=== PATIENT | female | born 1985 | race Caucasian/White ===

== ENCOUNTER → 2020-10-05 | Outpatient (CLI) | payer OTHER ==
[2020-10-05 23:53] LABS: Basophils # (A) 0.09 X 10*3/uL (0.00-0.10); Basophils % (A) 0.9 %; Eosinophils # (A) 0.41 X 10*3/uL (0.04-0.35); Eosinophils % (A) 4.2 %; HGB 13.1 g/dL (12.0-15.0); Lymphocytes # (A) 3.77 X 10*3/uL (0.90-5.00); Lymphocytes % (A) 38.2 %; MCHC 32.8 g/dL (32.0-37.0); MCV 100.8 fL (80.0-97.0); Mean Platelet Volume 9.7 fL (9.5-12.2); Monocytes # (A) 0.72 X 10*3/uL (0.20-1.00); Monocytes % (A) 7.3 %; Neutrophils # (A) 4.84 X 10*3/uL (1.80-7.70); Neutrophils % (A) 49.1 %; Platelet Count 366 X 10*3/uL (140-440); RBC 3.97 X 10*6/uL (4.10-5.20); RDW 13.6 % (11.5-14.5); WBC 9.86 X 10*3/uL (4.50-10.00)
[2020-10-06 05:06] LABS: African American GFR (CKD) 129.2 (60.0-200.0); Albumin 4.8 g/dL (3.80-4.90); Albumin/Globulin Ratio 2.29 (1.60-3.17); Anion Gap 11.6 mmol/L (4.00-12.00); BUN/Creat Ratio 24.29 Ratio (12.00-20.00); Calcium 9.1 mg/dL (8.7-10.3); Carbon Dioxide 19.4 mmol/L (21.6-31.8); Globulin 2.1 g/dL (1.6-3.3); Non-African American GFR(CKD) 111.5 (60.0-200.0); Potassium 4.3 mmol/L (3.5-5.5); Total Bilirubin 0.4 mg/dL (0.2-1.2); Total Protein 6.9 g/dL (6.2-8.2)
[2020-10-06 09:37] LABS: Gliadin AB IgA, Deaminated NEGATIVE (NEGATIVE); Gliadin AB IgG, Deaminated NEGATIVE (NEGATIVE)
== END | disposition home or self-care (01) ==
LOC: LABWHC1 15:35
PROVIDERS: ATTEND Nurse Practitioner
DX: R10.13 Epigastric pain (principal)
CPT/HCPCS: 36415; 80053; 82150; 83516; 83690; 85025

== ENCOUNTER 2020-10-20 09:23 | Day surgery (SDC) | payer OTHER ==
[2020-10-18 15:49] VITALS: BMI 26.4
[~2020-10-20 09:23] MED LIST: LIDOCAINE 1% (10MG/ML) FOR IV START INTRADERMA PRN
[2020-10-20 10:29] VITALS: RESP 18; TEMP 97.5
[2020-10-20] MEDS: LACTATED RINGERS 1,000 ML IV SCH ×2 (10:40→11:30)
[2020-10-20] MEDS ORDERED: PROPOFOL 10 MG/ML 20 ML VIAL IV ONE (11:33)
[2020-10-20] MEDS ORDERED: LIDOCAINE 1% INJ 10MG/ML (20 ML MDV) ONE (11:33)
--- NOTE | 2020-10-20 12:00 | P.PCN ---
Date of Procedure: 10/20/20 Description of Procedure: BRIEF HISTORY: Patient is a 35-year-old female presenting for outpatient EGD for evaluation of epigastric abdominal pain. Patient has a history of GERD and peptic ulcer disease. Previous EGD in 02/2019 significant for gastric ulcers which were nonbleeding. She reports continued symptoms of reflux and epigastric pain even on PPI therapy. Computed tomography scan performed at outside facility was concerning for possible recurrence of gastric ulcers. PROCEDURE PERFORMED: Esophagogastroduodenoscopy with biopsy . PREOPERATIVE DIAGNOSIS: Epigastric abdominal pain, GERD ESTIMATED BLOOD LOSS: Minimal. IV sedation per anesthesia. PROCEDURE: After informed consent was obtained, the patient was brought into the endoscopy unit. IV sedation was administered by Anesthesia under continuous monitoring. Initially the Olympus GIF-190 video endoscope was inserted into the mouth. Esophagus intubated without any difficulty. It was gradually advanced into the stomach and duodenum and carefully examined. The bulb and the second part of the duodenum appeared normal, With biopsies taken. The scope at this time was withdrawn to the stomach, adequately insufflated with air, and upon careful examination, mucosa of the antrum, body, cardia and the fundus appeared normal, Significant for moderate patchy erythema in the antrum suggestive of moderate antritis with biopsies of the antrum and body taken. The scope was then withdrawn into the esophagus. The GE junction was located at 39 cm from the incisors And biopsied. The esophagus appeared normal. There were no erosions or ulcerations seen and the patient tolerated the procedure well. IMPRESSION: 1. Moderate gastritis. 2. Biopsies of the duodenum. Antrum body and GE junction. RECOMMENDATIONS: The findings of this examination were discussed with the patient and her family. Okay to resume diet. Okay to resume medications. Await pathology from biopsies. Follow up in the GI clinic as scheduled. Continue current medical management.
[2020-10-20 12:19] VITALS: BP 156/82; PULSE 70
== END 2020-10-20 12:27 | disposition home or self-care (01) ==
LOC: ORWHC2ENDO 09:23
PROVIDERS: ATTEND Internal Medicine
DX: K29.50 Unspecified chronic gastritis without bleeding (principal); K21.9 Gastro-esophageal reflux disease without esophagitis; F17.200 Nicotine dependence, unspecified, uncomplicated; J45.909 Unspecified asthma, uncomplicated; Z98.890 Other specified postprocedural states; Z79.899 Other long term (current) drug therapy; Z91.040 Latex allergy status; Z91.09 Other allergy status, other than to drugs and biological substances
CPT/HCPCS: 88305; 43239; J2001; J2704